=== PATIENT | female | born 1975 | race Caucasian/White ===

== ENCOUNTER 2016-10-06 08:09 | Outpatient (CLI) | payer OTHER ==
[~2016-10-06 08:09] MED LIST: CLARITIN10 MG PO; EPIPEN 2-PAK0.3 MG; FLOVENT DISKU250 MCG IN; HYDROXYZINE HCL50 MG PO; LAMICTAL25 M1 PO; LOVENOX40 MG/0.4 SC; NORCO1 TA1 PO; OMEPRAZOLE40 MG PO; PANTOPRAZOLE SO40 MG PO; SERTRALINE HCL100 MG PO; VALACYCLOVIR H500 MG PO; ZOCOR40 MG PO
--- NOTE | 2016-10-06 10:38 | DIAGNOSTIC IMAGING REPORT ---
PROCEDURE: MR LOWER EXT JOINT WO CONT-LT INDICATION: LEFT KNEE DERANGEMENT TECHNIQUE: T1 and STIR sagittal, axial, coronal and coronal-oblique images. COMPARISON: Left knee MRI 10/23/2015. FINDINGS: Mild medial, patellofemoral and moderate lateral compartment spur formation, unchanged. Normal cruciate and collateral ligaments. Peripheral displacement of the lateral meniscus body with attenuation of the body and anterior horn. Progression of moderate lateral compartment chondromalacia with minor medial tibial plateau bone marrow changes. Normal medial meniscus. Normal quadriceps tendon. Patellar tendinosis. There is prepatellar and pretibial subcutaneous edema. Patellar cartilage is within normal limits. Small joint effusion. There is no popliteal cyst. IMPRESSION: 1. Moderate osteoarthritic changes of the lateral compartment with peripheral displacement of the lateral meniscus body, attenuation of the lateral meniscus anterior horn and body which may represent chronic tear versus debridement. 2. Progression of lateral compartment moderate chondromalacia 3. Patellar tendinosis 4. Small joint effusion
== END 2016-10-06 23:00 ==
LOC: MRI SRH 08:09
DX: M22.42 Chondromalacia patellae, left knee (principal); M76.52 Patellar tendinitis, left knee; M17.12 Unilateral primary osteoarthritis, left knee